=== PATIENT | male | born 1940 | race Caucasian/White ===

== ENCOUNTER → 2018-11-01 | Outpatient (CLI) | payer MEDICARE, OTHER | LOC: M.ULTRA 07:44 | DX: N18.9 Chronic kidney disease, unspecified (principal) ==

== ENCOUNTER → 2018-12-29 | Outpatient (CLI) | payer MEDICARE, OTHER | LOC: M.WC 07:43 | DX: T81.89XA Other complications of procedures, not elsewhere classified, initial encounter (principal); L02.212 Cutaneous abscess of back [any part, except buttock and flank]; L72.3 Sebaceous cyst; I10 Essential (primary) hypertension; I25.10 Atherosclerotic heart disease of native coronary artery without angina pectoris; I48.91 Unspecified atrial fibrillation; E78.5 Hyperlipidemia, unspecified; J45.909 Unspecified asthma, uncomplicated; Z86.711 Personal history of pulmonary embolism; Y92.89 Other specified places as the place of occurrence of the external cause; Y83.8 Other surgical procedures as the cause of abnormal reaction of the patient, or of later complication, without mention of misadventure at the time of the procedure ==

== ENCOUNTER → 2019-01-02 | Outpatient (CLI) | payer MEDICARE, OTHER | LOC: M.WC 05:21 | DX: T81.89XD Other complications of procedures, not elsewhere classified, subsequent encounter (principal); L02.212 Cutaneous abscess of back [any part, except buttock and flank]; L72.3 Sebaceous cyst; E78.5 Hyperlipidemia, unspecified; I25.10 Atherosclerotic heart disease of native coronary artery without angina pectoris; I48.91 Unspecified atrial fibrillation; I10 Essential (primary) hypertension; J45.909 Unspecified asthma, uncomplicated; Z86.711 Personal history of pulmonary embolism; Z98.49 Cataract extraction status, unspecified eye; Z79.82 Long term (current) use of aspirin; Y83.8 Other surgical procedures as the cause of abnormal reaction of the patient, or of later complication, without mention of misadventure at the time of the procedure ==

== ENCOUNTER → 2019-01-05 | Outpatient (CLI) | payer MEDICARE, OTHER | LOC: M.WC 01:49 | DX: T81.89XD Other complications of procedures, not elsewhere classified, subsequent encounter (principal); L02.212 Cutaneous abscess of back [any part, except buttock and flank]; L72.3 Sebaceous cyst; E78.5 Hyperlipidemia, unspecified; I25.10 Atherosclerotic heart disease of native coronary artery without angina pectoris; I48.91 Unspecified atrial fibrillation; I10 Essential (primary) hypertension; J45.909 Unspecified asthma, uncomplicated; Z86.711 Personal history of pulmonary embolism; Y83.8 Other surgical procedures as the cause of abnormal reaction of the patient, or of later complication, without mention of misadventure at the time of the procedure ==

== ENCOUNTER → 2019-01-12 | Outpatient (CLI) | payer MEDICARE, OTHER | LOC: M.WC 01:48 | DX: T81.89XD Other complications of procedures, not elsewhere classified, subsequent encounter (principal); L02.212 Cutaneous abscess of back [any part, except buttock and flank]; L72.3 Sebaceous cyst; E78.5 Hyperlipidemia, unspecified; I48.91 Unspecified atrial fibrillation; I10 Essential (primary) hypertension; I25.10 Atherosclerotic heart disease of native coronary artery without angina pectoris; J45.909 Unspecified asthma, uncomplicated; Z86.711 Personal history of pulmonary embolism; Y83.8 Other surgical procedures as the cause of abnormal reaction of the patient, or of later complication, without mention of misadventure at the time of the procedure ==

== ENCOUNTER → 2019-01-19 | Outpatient (CLI) | payer MEDICARE, OTHER | LOC: M.WC 04:52 | DX: T81.89XD Other complications of procedures, not elsewhere classified, subsequent encounter (principal); L02.212 Cutaneous abscess of back [any part, except buttock and flank]; L72.3 Sebaceous cyst; I25.10 Atherosclerotic heart disease of native coronary artery without angina pectoris; E78.5 Hyperlipidemia, unspecified; I48.91 Unspecified atrial fibrillation; J45.909 Unspecified asthma, uncomplicated; Z86.711 Personal history of pulmonary embolism; Y83.8 Other surgical procedures as the cause of abnormal reaction of the patient, or of later complication, without mention of misadventure at the time of the procedure ==

== ENCOUNTER → 2019-01-26 | Outpatient (CLI) | payer MEDICARE, OTHER | LOC: M.WC 04:58 | DX: T81.89XD Other complications of procedures, not elsewhere classified, subsequent encounter (principal); L02.212 Cutaneous abscess of back [any part, except buttock and flank]; L72.3 Sebaceous cyst; E78.5 Hyperlipidemia, unspecified; I10 Essential (primary) hypertension; I25.10 Atherosclerotic heart disease of native coronary artery without angina pectoris; I48.91 Unspecified atrial fibrillation; J45.909 Unspecified asthma, uncomplicated; Z86.711 Personal history of pulmonary embolism; Y83.8 Other surgical procedures as the cause of abnormal reaction of the patient, or of later complication, without mention of misadventure at the time of the procedure ==

== ENCOUNTER → 2019-02-05 | Outpatient (CLI) | payer MEDICARE, OTHER ==
[~2019-02-05] MED LIST: ASA81BEC PO; CHLORTHALIDONE25 MG PO; ELIQUIS5 MG PO; FLUTICASONE-SA1 EAC5 INH; KLOR-CON M2020 MEQ PO; LIPITOR 20 MG T20 M1 PO; LOSARTAN POTAS100 MG PO; METOPROLOL SUCC50 MG PO; MULTIVITAMINS PO; NORVASC10 MG PO; PEPCID40 MG PO; ZETIA10 MG PO; ZOLOFT25 MG PO
--- NOTE | 2019-02-11 16:03 | H ---
[place] [address] HISTORY AND PHYSICAL Name: EMMETT HAIR Wallace Room: [facility]#: [id number] Admission: 02/05/19 Attend Phys: Andreas Bonilla, Discharge: Date of : 40 Report #: [id number] THIS REPORT FOR: //name// CC: Mago Bonilla The patient is to be treated on 02/12/2019. DIAGNOSIS: Sebaceous cyst, chronic lower back. HISTORY OF PRESENT ILLNESS: The patient is a 78-year-old male who presented to my office after treatment of her chronic wound of the lower back to be a recurrent chronic sebaceous cyst and was consulted with Dr. Bonilla for surgical excision. PAST MEDICAL HISTORY: Asthma, hyperlipidemia, hypertension and coronary artery disease. PAST SURGICAL HISTORY: Cataract surgery, rotator cuff repair, thoracotomy, tonsillectomy and tooth extraction. CURRENT MEDICATIONS: Include Lipitor, Advair, metoprolol, Eliquis, Zantac, ____, potassium chloride, chlorthalidone. ALLERGIES: HE HAS ALLERGIES TO IODINE, PENICILLIN AND ADHESIVE TAPE. PHYSICAL EXAMINATION: GENERAL: He is an elderly, well-developed gentleman in no acute distress. HEAD, EARS, EYES, NOSE AND THROAT: Unremarkable. NECK: Supple. LUNGS: Clear. CARDIAC: Regular rate and rhythm. ABDOMEN: Benign. SKIN: On his lower mid back, there is a 3 cm raised palpable mass. EXTREMITIES: Noted no varicosities or pitting edema. IMPRESSION: Chronic sebaceous cyst. PLAN: Excision with primary closure. The operative procedure was outlined to the patient, its risks and benefits were explained. His questions were answered. He understands and wishes to proceed. <ELECTRONICALLY SIGNED> By: Shanthi Haro MD 02/11/19 1603 1107 [id number] Haro MD /nt
== END ==
LOC: M.WC 04:40
DX: T81.89XD Other complications of procedures, not elsewhere classified, subsequent encounter (principal); L02.212 Cutaneous abscess of back [any part, except buttock and flank]; L72.3 Sebaceous cyst; I25.10 Atherosclerotic heart disease of native coronary artery without angina pectoris; I48.91 Unspecified atrial fibrillation; I10 Essential (primary) hypertension; E78.5 Hyperlipidemia, unspecified; J45.909 Unspecified asthma, uncomplicated; Z86.711 Personal history of pulmonary embolism; Y83.8 Other surgical procedures as the cause of abnormal reaction of the patient, or of later complication, without mention of misadventure at the time of the procedure

== ENCOUNTER → 2019-02-12 | Day surgery (SDC) | payer MEDICARE, OTHER ==
--- NOTE | ~2019-02-12 | OP ---
[facility] [address] [place] [address] OPERATIVE REPORT Name: REGINALDOEMMETT N Room: [facility]#: [id number] Admission: 02/12/19 Attend Phys: Shanthi Haro MD Discharge: Date of : 40 Report #: [id number] THIS REPORT FOR: //name// CC: Shanthi Rockwell DATE OF SERVICE: 02/12/2019 PREOPERATIVE DIAGNOSIS: Chronic sebaceous cyst, mid lower back, 3 cm. POSTOPERATIVE DIAGNOSIS: Chronic sebaceous cyst, mid lower back, 3 cm. OPERATIVE PROCEDURE: Wide local excision and primary closure of sebaceous cyst. ANESTHESIA: Laryngeal mask with 0.5% Marcaine. OPERATIVE PROCEDURE: After the patient was placed under laryngeal mask anesthesia, the patient was positioned with right lateral decubitus position and the lower back was shaved, prepped and draped in our usual sterile fashion. A timeout was taken. IV clindamycin was administered. I began by infiltrating around the palpable area with 0.5% Marcaine and made an elliptical incision around the pore opening and dissected into the subcutaneous tissues and cored out remnant sebaceous cyst cavity and scar back to healthy tissue. Once that was accomplished and bleeding was controlled, the wound was reapproximated with buried 3-0 PDS sutures and Dermabond and ended the operative procedure. Estimated blood loss 2 mL. Sponge and instrument counts correct. Specimen to pathology. The patient was taken off laryngeal mass, returned to recovery in stable condition. By: 0822 [id number] Haro MD /wenceslao
[2019-02-12 06:30] LABS: HEMATOCRIT 40.8 % (42.0-52.0); HEMOGLOBIN 13.8 gm/dL (14.0-18.0); MCH 29.9 pg (26.0-34.0); MCHC 33.8 g/dL (28.0-37.0); MCV 88.5 fL (80.0-100.0); MPV 9.7 fl. (7.2-11.1); RBC 4.61 mil/uL (4.50-6.00); RDW-CV 14.5 % (10.5-14.5); WBC 7.9 thou/uL (4.0-11.0)
[2019-02-12 06:39] LABS: CALCIUM 8.9 mg/dL (8.5-10.1); CREATININE 1.7 mg/dL (0.6-1.3)
[2019-02-12 06:44] LABS: ALBUMIN 3.4 g/dL (3.4-5.0); TOTAL BILIRUBIN 0.9 mg/dL (<0.1-1.0); TOTAL PROTEIN 7.6 g/dL (6.4-8.2)
--- NOTE | 2019-02-13 10:53 | EKG ---
[place] [address] ELECTROCARDIOGRAM REPORT Name: EMMETT HAIR Room: [facility]#: [id number] Admission: 02/12/19 Attend Phys: Shanthi Haro MD Discharge: Date of : 40 Report #: [id number] THIS REPORT FOR: //name// [facility] Test Date: 2019-02-12 Test Time: 06:12:33 Pat Name: EMMETT HAIR Department: Room: Gender: M Supervisor Process Testing: UNK : 1940 Requested By: Shanthi Haro Order Number: [id number] Reading MD: Morales Johns Measurements Intervals [place] Rate: 94 P: OR: QRS: 48 QRSD: 93 T: 33 QT: 365 QTc: 457 Interpretive Statements Atrial fibrillation Abnormal R-wave progression, early transition Baseline wander in lead(s) V2 No previous ECG available for comparison Electronically Signed On 02-13-2019 10:53:12 YARD PERSON by Morales Johns [email or web address] <ELECTRONICALLY SIGNED> By: Morales Johns MD, [facility] 02/13/19 1053 0612 1 Morales Johns MD, [facility] /EPI
--- NOTE | 2019-02-13 16:06 | PATH ---
[address] [address] PATHOLOGY RPT PROCEDURE Name: MELOHOWIEEMMETT N Room: [facility]#: [id number] Admission: 02/12/19 Date of : 40 Discharge: Report #: [id number] Path Case #: [id number] [facility] Accession Number: [id number] . 01 Material submitted: . back - LOWER BACK SEBACEOUS CYST. Modifiers: lower . 01 Clinical history: . Sebaceous cyst . 02 Diagnosis: Lower back sebaceous cyst: - Benign skin with ruptured epidermal inclusion cyst showing acute and chronic inflammation, abscess formation, foreign body type granulomatous response and fibrosis. (IWONA:pit; 02/13/2019) QTP 02/13/2019 1243 Local . 02 Electronically signed: . Justin Galvan MD, Pathologist NPI- [id number] . 01 Gross description: . The specimen is received in formalin, labeled "Melo, Emmett, lower back sebaceous cyst" and consists of 2 segments of pink-kaur partially cauterized skin and underlying tissue measuring 2.2 x 1.2 x 0.5 cm and 1.0 x 0.6 x 0.3 cm. There is a possible disrupted cyst measuring 0.7 cm. The specimen is entirely submitted in A1. (SDY; 02/12/2019) SYU/SYU 02/12/2019 1517 Local . 02 Pathologist provided ICD-10: L72.0, L98.9, L02.212, L90.5 . 02 CPT . 656037 Specimen Comment: A courtesy copy of this report has been sent to [phone], [phone] Specimen Comment: [id number] Specimen Comment: Report sent to / DR BECK Performed at: 01 [facility] [address] [place] [address] [address], [place], [place] [id number] MD Andreas Waters MD Phone: [phone] Performed at: 02 [facility] [address] [place], [place] [id number] MD Justin Galvan MD Phone: [phone]
== END | disposition home or self-care (01) ==
LOC: M.SUR 05:48
PROVIDERS: Surgery
DX: L72.0 Epidermal cyst (principal); L02.212 Cutaneous abscess of back [any part, except buttock and flank]; L90.5 Scar conditions and fibrosis of skin; L98.9 Disorder of the skin and subcutaneous tissue, unspecified; I10 Essential (primary) hypertension; I25.10 Atherosclerotic heart disease of native coronary artery without angina pectoris; J45.909 Unspecified asthma, uncomplicated; E78.5 Hyperlipidemia, unspecified; Z98.890 Other specified postprocedural states; Z79.899 Other long term (current) drug therapy; Z79.01 Long term (current) use of anticoagulants; Z91.041 Radiographic dye allergy status

== ENCOUNTER → 2019-02-19 | Outpatient (CLI) | payer MEDICARE, OTHER | LOC: M.WC 01:29 | DX: L02.212 Cutaneous abscess of back [any part, except buttock and flank] (principal); L72.3 Sebaceous cyst; E78.5 Hyperlipidemia, unspecified; I25.10 Atherosclerotic heart disease of native coronary artery without angina pectoris; I48.91 Unspecified atrial fibrillation; I10 Essential (primary) hypertension; J45.909 Unspecified asthma, uncomplicated; Z86.711 Personal history of pulmonary embolism ==